=== PATIENT | female | born 1965 | race Caucasian/White ===

== ENCOUNTER 2017-08-31 07:38 | Emergency (ER) | payer OTHER ==
[2017-08-31 07:53] VITALS: BP 120/87
--- NOTE | 2017-08-31 07:59 | ED PDOC ---
Arrival/HPI - General Chief Complaint: Abnormal Skin Integrity Time Seen by Provider: 08/31/17 07:47 Historian: Patient - History of Present Illness Narrative History of Present Illness (Text): 08/31/17 07:56 52 year old female, whose past medical history includes Lupus, who presents to the ED complaining of a itchy, burning rash x 1 day. Patient notes no abnormal activity. Patient notes she has plants in her yard. Patient denies any fever, chills, chest pain, shortness of breath, nausea, vomiting, diarrhea, back pain, neck pain, headache, dizziness, or any other complaints. Time/Duration: 24 hours Symptom Onset: Sudden Symptom Course: Unchanged Activities at Onset: Light Past Medical History - Provider Review Nursing Documentation Reviewed: Yes - Infectious Disease Hx of Infectious Diseases: None - Reproductive Menopause: Yes - Cardiac Hx Cardiac Disorders: No - Endocrine/Metabolic Hx Hypothyroidism: Yes Hx Systemic Lupus Erythematosus: Yes - Hematological/Oncological Hx Blood Disorders: No - Musculoskeletal/Rheumatological Hx Musculoskeletal Disorders: No - Psychiatric Hx Substance Use: No - Surgical History Hx Section: Yes - Anesthesia Hx Anesthesia: No Family/Social History - Physician Review Nursing Documentation Reviewed: Yes Family/Social History: Unknown Family HX Smoking Status: Unknown If Ever Smoked Hx Alcohol Use: No Hx Substance Use: No Allergies/Home Meds Allergies/Adverse Reactions: Allergies No Known Allergies Allergy (Unverified 01/04/13 14:04) Home Medications: Home Meds Medication Instructions Recorded Confirmed Hydroxychloroquine Sulfate 0 mg PO DAILY 08/31/17 08/31/17 [Plaquenil] Review of Systems - Physician Review All systems were reviewed & negative as marked: Yes - Review of Systems Constitutional: Normal Eyes: Normal ENT: Normal Respiratory: Normal. absent: SOB, Cough Cardiovascular: Normal. absent: Chest Pain Gastrointestinal: Normal. absent: Abdominal Pain Genitourinary Female: Normal. absent: Dysuria, Frequency Musculoskeletal: Normal. absent: Back Pain, Neck Pain Skin: Rash Neurological: Normal. absent: Headache, Dizziness Endocrine: Normal Hemo/Lymphatic: Normal Psychiatric: Normal Physical Exam - Physical Exam Narrative Physical Exam (Text): 08/31/17 08:00 Gen: VS reviewed, alert, well developed, well nourished, nontoxic, mild distress. ENT: normal pharynx. Eye: EOMI, PERRL. Neck: no JVD, supple, no adenopathy. CV: regular rate, regular rhythm, no rubs, no murmur, no gallops, S1, S2, pulses equal and strong. Pulm: no distress, clear to auscultation, no wheeze, no rhonchi, breath sounds equal, no rales. Abd: soft, nontender, no guarding, no rebound, no rigidity, normal bowel sounds. Ext: no edema. Skin: spotty, vesicular rash on the Rt Hand, LLE, and LUE. No cellulitic skin changes. Lesions consistent with Poison Opal. Psych: responds appropriately to questions, normal affect. Neuro: oriented x 3, CN2-12 intact grossly, motor intact, sensation intact. Vital Signs Reviewed: Yes Vital Signs Temp Pulse Resp BP Pulse Ox 08/31/17 07:48 98.6 F 98 H 16 120/87 100 Temperature: Afebrile Blood Pressure: Normal Pulse: Tachycardic Respiratory Rate: Normal Appearance: Positive for: Well-Appearing, Non-Toxic, Comfortable Pain Distress: None Mental Status: Positive for: Alert and Oriented X 3 Medical Decision Making ED Course and Treatment: 08/31/17 08:03 Impression: 52 year old female presents to the emergency department complaining of an itchy burning rash x 1 day. Differential Diagnosis included but are not limited to: Poison Opal Plan: -- Prednisone -- Reassess and disposition Progress Notes: - Scribe Statement The provider has reviewed the documentation as recorded by the Yusufibjacqueline Palma All medical record entries made by the Scribe were at my direction and personally dictated by me. I have reviewed the chart and agree that the record accurately reflects my personal performance of the history, physical exam, medical decision making, and the department course for this patient. I have also personally directed, reviewed, and agree with the discharge instructions and disposition. Disposition/Present on Arrival - Present on Arrival History of DVT/PE: No History of Uncontrolled Diabetes: No Urinary Catheter: No History of Decub. Ulcer: No History Surgical Site Infection Following: None - Disposition Patient Problems: Current Active Problems Problem Status Onset Poison opal dermatitis Acute
--- NOTE | 2017-08-31 08:03 | ED PDOC ---
Arrival/HPI - General Chief Complaint: Abnormal Skin Integrity Time Seen by Provider: 08/31/17 07:47 Historian: Patient - History of Present Illness Narrative History of Present Illness (Text): 08/31/17 07:56 52 year old female, whose past medical history includes Lupus, who presents to the ED complaining of a itchy, burning rash x 1 day. Patient notes no abnormal activity. Patient notes she has plants in her yard. Patient denies any fever, chills, chest pain, shortness of breath, nausea, vomiting, diarrhea, back pain, neck pain, headache, dizziness, or any other complaints. Time/Duration: 24 hours Symptom Onset: Sudden Symptom Course: Unchanged Activities at Onset: Light Past Medical History - Provider Review Nursing Documentation Reviewed: Yes - Infectious Disease Hx of Infectious Diseases: None - Reproductive Menopause: Yes - Cardiac Hx Cardiac Disorders: No - Endocrine/Metabolic Hx Hypothyroidism: Yes Hx Systemic Lupus Erythematosus: Yes - Hematological/Oncological Hx Blood Disorders: No - Musculoskeletal/Rheumatological Hx Musculoskeletal Disorders: No - Psychiatric Hx Substance Use: No - Surgical History Hx Section: Yes - Anesthesia Hx Anesthesia: No Family/Social History - Physician Review Nursing Documentation Reviewed: Yes Family/Social History: Unknown Family HX Smoking Status: Unknown If Ever Smoked Hx Alcohol Use: No Hx Substance Use: No Allergies/Home Meds Allergies/Adverse Reactions: Allergies No Known Allergies Allergy (Unverified 01/04/13 14:04) Home Medications: Home Meds Medication Instructions Recorded Confirmed Hydroxychloroquine Sulfate 0 mg PO DAILY 08/31/17 08/31/17 [Plaquenil] Review of Systems - Physician Review All systems were reviewed & negative as marked: Yes - Review of Systems Constitutional: Normal Eyes: Normal ENT: Normal Respiratory: Normal. absent: SOB, Cough Cardiovascular: Normal. absent: Chest Pain Gastrointestinal: Normal. absent: Abdominal Pain, Diarrhea, Nausea, Vomiting Genitourinary Female: Normal. absent: Dysuria, Frequency Musculoskeletal: Normal. absent: Back Pain, Neck Pain Skin: Rash Neurological: Normal. absent: Headache, Dizziness Endocrine: Normal Hemo/Lymphatic: Normal Psychiatric: Normal Physical Exam - Physical Exam Narrative Physical Exam (Text): 08/31/17 07:56 Gen: VS reviewed, alert, well developed, well nourished, nontoxic, mild distress. ENT: normal pharynx. Eye: EOMI, PERRL. Neck: no JVD, supple, no adenopathy. CV: regular rate, regular rhythm, no rubs, no murmur, no gallops, S1, S2, pulses equal and strong. Pulm: no distress, clear to auscultation, no wheeze, no rhonchi, breath sounds equal, no rales. Abd: soft, nontender, no guarding, no rebound, no rigidity, normal bowel sounds. Ext: no edema. Skin: spotty, vesicular rash on the Rt Hand, LLE, and LUE. No cellulitic skin changes. Lesions consistent with Poison Opal. Psych: responds appropriately to questions, normal affect. Neuro: oriented x 3, CN2-12 intact grossly, motor intact, sensation intact. Vital Signs Reviewed: Yes Vital Signs Temp Pulse Resp BP Pulse Ox 08/31/17 08:19 98.2 F 93 H 18 99 08/31/17 07:48 98.6 F 98 H 16 120/87 100 Temperature: Afebrile Blood Pressure: Normal Pulse: Regular Respiratory Rate: Normal Appearance: Positive for: Well-Appearing, Non-Toxic, Comfortable Pain Distress: None Mental Status: Positive for: Alert and Oriented X 3 Medical Decision Making ED Course and Treatment: 08/31/17 07:56 Impression: 52 year old female presents to the emergency department complaining of an itchy burning rash x 1 day. Differential Diagnosis included but are not limited to: Poison Opal Plan: -- Prednisone -- Reassess and disposition 08/31/17 07:58 diffuse scant rash in clusters and streaks in various areas of the body with positive exposure to garden setting. lesons have typical appearance of poison opal (allergic contact derm). some lesions are very intense and i feel systemic therapy is warranted. patient has tolerated prednisone in the past and is agreeable to plan. - Medication Orders Current Medication Orders: Discontinued Medications Prednisone (Prednisone Tab) 60 mg PO STAT ONE Stop: 08/31/17 07:58 Last Admin: 08/31/17 08:15 Dose: 60 mg - Scribe Statement The provider has reviewed the documentation as recorded by the Albino Palma All medical record entries made by the Yusufibjacqueline were at my direction and personally dictated by me. I have reviewed the chart and agree that the record accurately reflects my personal performance of the history, physical exam, medical decision making, and the department course for this patient. I have also personally directed, reviewed, and agree with the discharge instructions and disposition. Disposition/Present on Arrival - Present on Arrival Any Indicators Present on Arrival: No History of DVT/PE: No History of Uncontrolled Diabetes: No Urinary Catheter: No History of Decub. Ulcer: No History Surgical Site Infection Following: None - Disposition Have Diagnosis and Disposition been Completed?: Yes Diagnosis: Poison opal dermatitis Disposition: HOME/ ROUTINE Disposition Time: 08:19 Patient Plan: Discharge Condition: STABLE Discharge Instructions (ExitCare): Poison Opal, Poison [place], Poison [place] ([place]) Print Language: KOREAN Additional Instructions: clean your skin with gentle soaps. you may apply cold compressess to help with the local irritation (30 minutes at a time.) Prescriptions: Prednisone [Deltasone] 20 mg PO DAILY 12 Days #24 tablet Referrals: Cheryl Tiernye MD [Primary Care Provider] - Follow up with primary Forms: [facility] (Chinese), WORK NOTE
[2017-08-31 08:21] VITALS: PULSE 93; RESP 18; TEMP 98.2; O2SAT 99
== END 2017-08-31 08:21 | disposition home or self-care (01) ==
LOC: ED 07:38
DX: L23.7 Allergic contact dermatitis due to plants, except food (principal)